=== PATIENT | female | born 1985 | race Hispanic/Latino ===

== ENCOUNTER 2022-10-09 09:30 | Emergency (ER) | payer SELFPAY ==
--- NOTE | ~2022-10-09 | CT_ITS ---
EXAMINATION: CT abdomen pelvis w con DATE: 10/09/2022 11:20 INDICATION: Low abdominal pain. Left flank pain. TECHNIQUE: Computed tomography (CT) of the abdomen and pelvis was performed with 100 mL Omnipaque 350 intravenous contrast. Automated exposure control and iterative reconstruction technique were employe d. The dose-length product was 915.67 mGy-cm. COMPARISON: None. FINDINGS: The visualized portions of the lung bases posteriorly mild atelectasis. No pleural effusion . The heart size is normal. No pericardial effusion. The liver, gallbladder, spleen, pancreas, adrena l glands, and right kidney are normal. There is a 4 mm cyst in left kidney. There are no dilated loop s of bowel. The appendix is normal. There are no pathologically enlarged lymph nodes. There is no adri e intraperitoneal fluid. There is mild thoracic and lumbar spondylosis. IMPRESSION: 1. No etiology for the patient's symptoms. Reviewed, dictated and finalized at location A.
[2022-10-09 10:02] VITALS: BP 118/55; PULSE 63; RESP 18; TEMP 36.4; O2SAT 97
--- NOTE | 2022-10-09 10:27 | ED.BACK ---
HPI - Back Pain/Injury General Chief Complaint: Back Pain/Injury <ARON Montenegro Last Filed: 10/09/22 13:34> Stated Complaint: flank pain <ARON Montenegro Last Filed: 10/09/22 13:34> Time Seen by Provider: 10/09/22 10:02 <ARON Montenegro Last Filed: 10/09/22 13:34> Source: patient <ARON Montenegro Last Filed: 10/09/22 13:34> Mode of arrival: ambulatory <ARON Montenegro Last Filed: 10/09/22 13:34> Limitations: language barrier <ARON Montenegro Last Filed: 10/09/22 13:34> History of Present Illness HPI Narrative: Patient is a 37 y/o female who presents to the ED with c/o L flank pain and urinary sx's. Patient is primarily Amharic speaking. [employer] wire brush operator was utilized for assistance with translation. Patient reports having urinary symptoms for the last 3 days, including dysuria, urinary frequency, urinary urgency. She also reports having intermittent pain in her left flank and left lower abdomen. She took Tylenol for her symptoms last night. She denies any fever, hematuria, N/V/D, constipation, rectal bleeding. <ARON Montenegro Last Filed: 10/09/22 13:34> Related Data Allergies/Adverse Reactions: Allergies Allergy/AdvReac Type Severity Reaction Status Date / Time No Known Allergies Allergy Verified 10/09/22 10:05 <ARON Montenegro Last Filed: 10/09/22 13:34> Review of Systems Review of Systems: CONSTITUTIONAL: Denies fever, chills, or sweats. CARDIOVASCULAR: Denies chest pain. RESPIRATORY: Denies dyspnea. GASTROINTESTINAL: See HPI. GENITOURINARY: See HPI. SKIN: Denies rash or itching. MUSCULOSKELETAL: See HPI. NEUROLOGIC: Denies headache, numbness, or weakness. <ARON Montenegro Last Filed: 10/09/22 13:34> All systems reviewed & are unremarkable except as noted in HPI and below <Elizabeth Gates PA-C - Last Filed: 10/09/22 13:34> [facility] Past Medical History Medical History: Medical History (Updated 10/09/22 @ 11:36 by Elizabeth Gates PA-C) No pertinent past medical history <Elizabeth Gates PA-C - Last Filed: 10/09/22 13:34> Surgical History Surgical History: Surgical History (Updated 10/09/22 @ 10:33 by Elizabeth Gates PA-C) No pertinent past surgical history <Elizabeth Gates PA-C - Last Filed: 10/09/22 13:34> Social History Social History: Social History (Updated 10/09/22 @ 10:33 by Elizabeth Gates PA-C) Smoking status: Never smoker <Elizabeth Gates PA-C - Last Filed: 10/09/22 13:34> Exam Narrative: GENERAL: Well appearing, obese, non-toxic, in no acute distress. HEAD: Normocephalic, atraumatic. NECK: Supple. No adenopathy, no masses. RESPIRATORY: Airway patent, respirations nonlabored. Clear to auscultation bilaterally, no rales, rhonchi, wheezing. CARDIOVASCULAR: Regular rate and rhythm without murmurs, rubs, or gallops. Peripheral pulses 2+ and equal bilaterally. ABDOMINAL: Soft, tenderness in RLQ/LLQ, suprapubic region, nondistended, no hepatosplenomegaly. Normoactive BS. + mild CVA tenderness on L. MUSCULOSKELETAL: Moves all extremities. Strength/ROM intact without gross deformities. No midline spinal tenderness. SKIN: Warm, dry, normal color. No rashes. NEURO: A&O X3. Speech clear. Cranial nerves II-XII grossly intact. Steady gait. No ataxic movements. PSYCHIATRIC: Appropriate mood and affect. Normal interaction. <Elizabeth Gates PA-C - Last Filed: 10/09/22 13:34> Course CERTIFIED DRUG COUNSELOR/PA Physician Supervision Today's evaluation involve both the PA and myself I made the medical decision making components of today's evaluation patient having back pain does have a mild questionable UTI CT shows no acute process will start antibiotics and discharge to follow-up as an outpatient <Db Davis, - Last Filed: 10/09/22 12:39> Vital Signs Vital signs: Vital Signs
[2022-10-09 10:32] LABS: Basophils Percent Auto 0.7 % (0.2-1.2); Eosinophils Absolute Auto 0.3 K/mm3 (0-0.3); Eosinophils Percent Auto 5.3 % (0-4.4); Hematocrit 40.7 % (37.0-47.0); Hemoglobin 13.6 g/dL (12.0-15.0); Immature Granulocyte Absolute 0.01 K/mm3 (0.00-0.031); Immature Granulocyte Percent A 0.2 % (0-0.5); Lymphocytes Absolute Auto 1.76 K/mm3 (0.9-3.2); Lymphocytes Percent Auto 31.1 % (18.3-44.2); Mean Corpuscular HGB Conc 33.4 g/dl (32-36); Mean Corpuscular Volume 89.8 fl (80-100); Mean Platelet Volume 10.9 fl (7.4-10.4); Monocytes Absolute Auto 0.4 K/mm3 (0.1-0.6); Monocytes Percent Auto 6.7 % (2.6-8.5); Neutrophils Absolute Auto 3.2 K/mm3 (1.3-6.7); Platelet Count Result 252 k/mm3 (150-375); Red Blood Count 4.53 M/mm3 (4.2-5.4); Red Cell Distribution Width 13.6 % (11.5-14.5); White Blood Count 5.7 K/mm3 (4.5-10.0)
[2022-10-09] MEDS: SODIUM CHLORIDE 0.9% IV 1,000 ML 999 ML IV CONT (10:37)
[2022-10-09 10:43] LABS: Appearance Urine Cloudy (Clear); Bacteria Urine 2+ /hpf; Bilirubin Urine Negative (Negative); Blood Urine Negative (Negative); Color Urine Dark Yellow (Yellow); Glucose Urine UA Negative (Negative); Ketones Urine Trace mg/dL (Negative); Leukocyte Esterase Ur Negative LEU/UL (Negative); Nitrate Urine Negative (Negative); Non Pathogenic Casts 0-2; Protein Urine Trace mg/dL (Negative); RBC Urine 0-2 /hpf (0-2); Specific Grav Ur 1.028 (1.001-1.035); Squamous Epithelial Cell Urine Moderate /hpf (Few); Urobilinogen Urine 0.2 mg/dL (<2.0); WBC Urine 0-5 /hpf
[2022-10-09 10:43] LABS: Alanine Aminotransferase 27 U/L (6-35); Albumin Level 4.7 g/dL (3.5-5.1); Alkaline Phosphatase 74 U/L (38-126); Anion Gap 9 mmol/L (8-16); Aspartate Amino Transferase 25 U/L (14-36); Bilirubin,Total 0.7 mg/dL (0.2-1.3); Blood Urea Nitrogen 8 mg/dL (7-17); Calcium 8.8 mg/dL (8.4-10.2); Carbon Dioxide 26 mmol/L (22-30); Chloride 105 mmol/L (98-107); Estimated CRCL calculation 141 ml/min; Estimated Glomerular Filt Rate > 60; Glucose 82 mg/dL (65-110); Lipase 51 U/L (23-300); Potassium 3.4 mmol/L (3.4-5.0); Sodium 140 mmol/L (137-145)
[2022-10-09 10:59] LABS: Add Urine Microscopic? YES
[2022-10-09 12:10] VITALS: BP 108/64; PULSE 60; RESP 16; O2SAT 100
== END 2022-10-09 12:10 | disposition home or self-care (01) ==
PROVIDERS: Emergency Medicine; Emergency Provider Physician Assistant
DX: N30.00 Acute cystitis without hematuria (principal)
CPT/HCPCS: 36415; 74177; 80053; 81001; 81025; 83690; 85025; 87077; 87086; 87088; 87186; 96361; 96365; 99284; J0131; J7030; Q9967

== ENCOUNTER 2022-10-31 18:19 | Emergency (ER) | payer SELFPAY ==
[2022-10-31 18:36] VITALS: BP 136/89; PULSE 71; RESP 18; TEMP 36.4; O2SAT 100
[2022-10-31 19:23] LABS: Strep Group A RT-PCR NOT DETECTED (Negative)
[2022-10-31 19:57] LABS: Basophils Percent Auto 0.6 % (0.2-1.2); Eosinophils Absolute Auto 0.3 K/mm3 (0-0.3); Eosinophils Percent Auto 4.3 % (0-4.4); Hematocrit 38.9 % (37.0-47.0); Hemoglobin 12.6 g/dL (12.0-15.0); Immature Granulocyte Absolute 0.01 K/mm3 (0.00-0.031); Immature Granulocyte Percent A 0.1 % (0-0.5); Lymphocytes Percent Auto 28.4 % (18.3-44.2); Mean Corpuscular HGB Conc 32.4 g/dl (32-36); Mean Corpuscular Hemoglobin 29.5 pg (26-34); Mean Corpuscular Volume 91.1 fl (80-100); Monocytes Absolute Auto 0.4 K/mm3 (0.1-0.6); Neutrophils Absolute Auto 4.3 K/mm3 (1.3-6.7); Neutrophils Percent Auto 60.6 % (45.5-73.1); Platelet Count Result 236 k/mm3 (150-375); Red Blood Count 4.27 M/mm3 (4.2-5.4); Red Cell Distribution Width 13.6 % (11.5-14.5); White Blood Count 7.1 K/mm3 (4.5-10.0)
[2022-10-31 20:11] LABS: Alanine Aminotransferase 17 U/L (6-35); Albumin Level 4.3 g/dL (3.5-5.1); Alkaline Phosphatase 67 U/L (38-126); Anion Gap 6 mmol/L (8-16); Aspartate Amino Transferase 23 U/L (14-36); Bilirubin,Total 0.4 mg/dL (0.2-1.3); Blood Urea Nitrogen 9 mg/dL (7-17); CRP 0.6 mg/dL (<1.0); Calcium 8.7 mg/dL (8.4-10.2); Carbon Dioxide 26 mmol/L (22-30); Chloride 105 mmol/L (98-107); Estimated CRCL calculation 162 ml/min; Estimated Glomerular Filt Rate > 60; Glucose 88 mg/dL (65-110); Potassium 3.6 mmol/L (3.4-5.0); Sodium 137 mmol/L (137-145)
--- NOTE | 2022-10-31 20:27 | ED.GENADULT ---
HPI - General Adult General Chief complaint: Unspecified <Wali Bentley PA-C - Last Filed: 11/01/22 02:13> Stated complaint: sore throat <ARON Carrillo Last Filed: 11/01/22 02:13> Time Seen by Provider: 10/31/22 18:46 <Wali Bentley PA-C - Last Filed: 11/01/22 02:13> Source: patient and machinery rigger <ARON Carrillo Last Filed: 11/01/22 02:13> Mode of arrival: ambulatory <ARON Carrillo Last Filed: 11/01/22 02:13> Limitations: language barrier <ARON Carrillo Last Filed: 11/01/22 02:13> History of Present Illness HPI narrative: This is a 37-year-old female presents the ED with chief complaint of a sore throat onset x8 days. She also reports a throat heaviness and feeling like a rope is around my throat. She was initially seen for sore throat a days ago and given amoxicillin which she has finished. Patient states she was seen recently for molar extraction and is having dental pain since then as well. Denies fevers, chills, dysphagia, nausea, vomiting. Denies trismus or drooling. <Wali Bentley PA-C - Last Filed: 11/01/22 02:13> Related Data Allergies/adverse reactions: Allergies Allergy/AdvReac Type Severity Reaction Status Date / Time No Known Allergies Allergy Verified 10/31/22 18:39 <ARON Carrillo Last Filed: 11/01/22 02:13> Review of Systems Review of Systems: CONSTITUTIONAL: Denies fever, chills, or sweats. EYES: Denies visual changes, redness, or discharge. ENT: See HPI CARDIOVASCULAR: Denies chest pain, palpitations, or edema. RESPIRATORY: Denies cough or dyspnea. GASTROINTESTINAL: Denies abdominal pain, nausea, vomiting, or diarrhea. GENITOURINARY: Denies dysuria or hematuria. SKIN: Denies rash or itching. MUSCULOSKELETAL: Denies back pain, joint pain, or myalgia. NEUROLOGIC: Denies headache, numbness, dizziness, or weakness. PSYCHIATRIC: Denies anxiety or depression. <Wali Bentley PA-C - Last Filed: 11/01/22 02:13> [facility] Past Medical History Medical History: Medical History (Updated 11/01/22 @ 00:00 by Clari Carreon) No pertinent past medical history <Wali Bentley PA-C - Last Filed: 11/01/22 02:13> Surgical History Surgical History: Surgical History (Updated 10/09/22 @ 10:33 by Elizabeth Gates PA-C) No pertinent past surgical history <Wali Bentley PA-C - Last Filed: 11/01/22 02:13> Social History Social History: Social History (Updated 10/09/22 @ 10:33 by Elizabeth Gates PA-C) Smoking status: Never smoker <Wali Bentley PA-C - Last Filed: 11/01/22 02:13> Exam Narrative: GENERAL: Well-appearing, well-nourished, and in no acute distress. HEAD: Normocephalic, atraumatic. EYES: PERRLA and EOMI. ENT: Nares clear, no rhinorrhea or epistaxis. Mucous membranes moist. Oropharynx without tonsillar hypertrophy exudate or other lesions. Uvula midline. No trismus or drooling. Left molar tooth socket within normal limits. Right tooth socket appears inflamed and is tender. NECK: Supple. No adenopathy or masses. CHEST: No respiratory distress. Clear to auscultation. No wheezes rales or rhonchi HEART: Regular rate and rhythm. No murmur heard. Normal peripheral pulses. ABDOMEN: Soft, nontender, nondistended, normal active bowel sounds. EXTREMITIES: Normal range of motion. No edema. SKIN: Warm, dry, no rash. NEURO: Alert and oriented x3. No focal deficits. PSYCH: Normal mood and affect. <Wali Bentley PA-C - Last Filed: 11/01/22 02:13> Course SCHOOL SOCIAL WORKER/PA Physician Supervision For this patient encounter, I reviewed the SCHOOL SOCIAL WORKER or PA documentation, treatment plan, and medical decision making and I had [id number] time with this patient. I performed all aspects of the MDM as documented. 37-year-old female presenting with dental pain and sore throat. Patient history and physical assisted with well head pumper. Patient states that she initially developed a sore throat
[2022-10-31 22:24] VITALS: BP 132/84; PULSE 78; RESP 15; O2SAT 100
== END 2022-10-31 22:27 | disposition home or self-care (01) ==
PROVIDERS: Emergency Medicine; Emergency Provider Physician Assistant
DX: K08.89 Other specified disorders of teeth and supporting structures (principal); K08.409 Partial loss of teeth, unspecified cause, unspecified class
CPT/HCPCS: 36415; 80053; 85025; 86140; 87651; 99283